=== PATIENT | male | born 1995 | race Caucasian/White ===

== ENCOUNTER 2021-03-19 03:45 | Emergency (ER) | payer OTHER ==
[~2021-03-19 03:45] MED LIST: AUGMENTIN 875-1 EACH PO
[2021-03-19] MEDS ORDERED: CEPHALEXIN500 MG PO (05:01)
[2021-03-19] MEDS ORDERED: ELIMITE60 GM TP (05:01)
== END 2021-03-19 05:50 | disposition home or self-care (01) ==
LOC: ER1 03:45
DX: L73.9 Follicular disorder, unspecified (principal); F17.290 Nicotine dependence, other tobacco product, uncomplicated
CPT/HCPCS: 99282